=== PATIENT | male | born 1985 | race Caucasian/White ===

== ENCOUNTER 2017-09-27 21:07 | Emergency (ER) | payer BC ==
[~2017-09-27] VITALS: Ht 182.9 cm; Wt 145.7 kg
[~2017-09-27 21:07] MED LIST: FLUO10CA48 PO
[2017-09-27 21:08] VITALS: TEMP 36.8; Ht 182.9 cm; Wt 145.7 kg
[2017-09-27] MEDS ORDERED: AMOX875T PO (21:25)
--- NOTE | 2017-09-27 22:12 | DIAGNOSTIC IMAGING REPORT ---
R FOOT MIN 3 VIEWS ROUTINE CLINICAL HISTORY: Pain and swelling over dorsum of right foot. COMPARISON: None FINDINGS: Tarsometatarsal joints are intact. There is no acute fracture within the right foot. No erosions are identified. IMPRESSION: No acute fracture or dislocation within the right foot. Electronically signed by: Wilver Hardwick M.D. 09/27/2017 10:11 PM Dictated Date/Time: 09/27/2017 10:10 PM
[2017-09-27] MEDS ORDERED: HYDROCODONE/ACETAMOPHEN 5/325MG TAB PO STA (22:28)
[2017-09-27] MEDS ORDERED: HYDR-5688 PO (22:44)
--- NOTE | 2017-09-27 22:47 | EMERGENCY ROOM VISIT NOTE ---
History First contact with patient: 21:31 Chief Complaint: FOOT PAIN Stated Complaint: SEVERE PAIN AND NUMBNESS R FOOT History of Present Illness The patient is a 31 year old male who presents to the Emergency Room with complaints of right foot pain that has been intermittent over the last several months. The patient denies any known injury. The pain is worse with weightbearing. He reports it's also works with dorsiflexion of the foot. He denies any pain in the ankle. No previous injury to the foot. He has tried ibuprofen with minimal relief. Review of Systems 6 system review negative. Please see pertinent positives in the history of present illness section. Past Medical/Surgical History Medical Problems: (1) Bronchitis (2) Depression (3) Pneumonia (4) Tonsillectomy and adenoidectomy Social History Smoking Status: Never Smoker Marital Status: Housing Status: lives with family Occupation Status: employed Current/Historical Medications Scheduled Amoxicillin & Pot Clavulanate (Augmentin 875-125 mg), 1 TAB PO BID Fluoxetine (Prozac), 10 MG PO DAILY Physical Exam Vital Signs Date Time Temp Pulse Resp B/P (MAP) Pulse Ox O2 Delivery O2 Flow Rate FiO2 09/27/17 21:08 36.8 107 18 116/78 97 Room Air Physical Exam VITALS: Vitals are noted on the nurse's note and reviewed by myself. Vital signs stable. GENERAL: 31-year-old male, in mild discomfort, SKIN: The skin was intact HEAD: Normocephalic atraumatic. MUSCULOSKELETAL: RIGTH FOOT: Edema noted to the dorsal aspect of the right foot. Tenderness over the lateral dorsum. Dorsiflexion and plantarflexion are intact. DP pulse +2. No erythema or warmth appreciated. No tenderness over the medial or lateral malleolus. No tenderness over the heel. NEURO: Patient was alert and oriented to person place and time. Normal sensation to touch. No focal neurological deficits. Medical Decision & Procedures ER Provider Diagnostic Interpretation: Foot x-ray IMPRESSION: No acute fracture or dislocation within the right foot. Electronically signed by: Wilver Hardwick M.D. 09/27/2017 10:11 PM Dictated Date/Time: 09/27/2017 10:10 PM The status of this report is Signed. Draft = Not yet reviewed or approved by Radiologist. Signed = Reviewed and approved by Radiologist. <AttendingPhy></AttendingPhy> <FamilyPhy>Holencik,Bonnie D.O.</FamilyPhy> < PrimaryPhy>Bonnie Fernandez D.O.</PrimaryPhy> <UnitNumber>[id number]</UnitNumber> <VisitNumber>[id number]</VisitNumber> Medications Administered Medications (Trade) Dose Ordered Sig/[place] Route Start Time Stop Time Status Last Admin Dose Admin Prednisone (PredniSONE TAB) 60 mg NOW STAT PO 09/27/17 22:20 09/27/17 22:21 DC 09/27/17 22:25 60 MG ED Course The patient was seen and examined Imaging was performed and reviewed The patient was given 1 dose of prednisone 60 mg by mouth We reviewed the findings. We also thoroughly discussed discharge instructions. The patient was comfortable with being discharged home. He was given 1 dose of [place] prior to discharge. He was discharged home with his driving. Medical Decision Differential diagnosis: Tendinitis, gout, fracture, contusion, This patient is a 31-year-old male that presents to emergency department with chronic intermittent right foot pain. On exam, he did have some tenderness and swelling over the dorsum of the foot. X-rays were unremarkable. I believe he possibly has a tendinitis. The patient was given a course of steroids. He was also given a short course of [place]. He was advised to apply ice intermittently and elevate the foot. Minimal weightbearing for at least 2 days or until the foot is feeling better. He was also given a referral for an orthopedic doctor if the pain does not improve. He agrees to return to the emergency department with any new or concerning symptoms. This chart was completed in part utilizing [employer] Speech Voice Recognition software. Attempts were made to minimize the grammatical errors, random word insertions, pronoun errors and incomplete sentences. Any formal questions or concerns about the content, text or information contained within the body of this dictation should be directly addressed to the provider for clarification. Impression Primary Impression: Right foot pain Departure Information Dispostion Home / Self-Care Condition GOOD Prescriptions Hydrocodone/Acetaminophen 5MG/325MG ([place] 5MG/325MG) Tab 1-2 TABLET PO Q4H Y for Pain, #15 TAB For Initial Treatment Prov: Calista Reynoso PA-C 09/27/17 Referrals Bonnie Fernandez D.O. (PCP) Jorge A Paulino D.O. Patient Instructions My [facility] Additional Instructions You were evaluated in the emergency department for right foot pain. X-rays did not show any signs of fracture. Please take the entire course of steroids as prescribed Ibuprofen 600 mg every 6 hours [place] 1-2 tabs every 4 hours for severe pain. Do not drink alcohol or drive while taking this medication. This may be taken with ibuprofen, but avoid Tylenol. Please take a stool softener with this medication as it may constipate you Minimal weightbearing for at least 48 hours or until the foot is feeling better. Please use crutches to get around. Call the orthopedic doctor first thing tomorrow morning for a follow-up appointment Please return to the emergency department with any new, worsening or concerning symptoms
[2017-09-27 22:50] VITALS: BP 120/82; PULSE 98; O2SAT 97
== END 2017-09-27 22:50 | disposition home or self-care (01) ==
LOC: C.EDB 21:07 → C.EDD 22:50
DX: M79.671 Pain in right foot (principal); F32.9 Major depressive disorder, single episode, unspecified; Z79.899 Other long term (current) drug therapy; Z87.01 Personal history of pneumonia (recurrent); Z87.09 Personal history of other diseases of the respiratory system